=== PATIENT | female | born 1990 | race Caucasian/White ===

== ENCOUNTER 2019-07-18 09:06 | Inpatient (IN) | payer MEDICAID ==
[~2019-07-18] VITALS: Ht 167.6 cm; Wt 99.8 kg
[2019-07-18] MEDS ORDERED: OXYTOCIN 20 UNITS in LACTATED RINGERS 1,000 ML IV SCH (09:45)
[2019-07-18] MEDS ORDERED: ONDANSETRON 4 MG/2 ML VIAL IVP PRN (09:45)
[2019-07-18] MEDS ORDERED: LACTATED RINGERS 1,000 ML IV SCH (11:05)
[2019-07-18 11:45] VITALS: BP 134/86
[2019-07-18 11:45] LABS: BASOPHILS % (AUTO) 0.2 % (0.0-2.0); EOSINOPHILS # (AUTO) 0.1 K/uL (0-0.4); EOSINOPHILS % (AUTO) 0.7 % (0.0-4.0); HEMATOCRIT 39.9 % (36-48); HEMOGLOBIN 13.2 g/dL (12.0-16.0); LYMPHOCYTES # (AUTO) 1.9 K/uL (2.5-16.5); LYMPHOCYTES % (AUTO) 18.4 % (20.5-51.1); MEAN CORPUSCULAR HEMOGLOBIN 29 pg (27-31); MEAN CORPUSCULAR HGB CONC 33 g/dL (33-37); MEAN CORPUSCULAR VOLUME 88.5 fL (80-94); MONOCYTES # (AUTO) 0.9 K/uL (0.8-1.0); MONOCYTES % (AUTO) 8.2 % (1.7-9.3); NEUTROPHILS # (AUTO) 7.7 K/uL (1.8-7.7); NEUTROPHILS % (AUTO) 72.5 % (42.2-75.2); PLATELET COUNT (AUTO) 208 K/uL (140-450); RED BLOOD CELL COUNT(AUTO) 4.52 MIL/uL (4.20-5.40); RED CELL DISTRIBUTION WIDTH 13.6 % (11.6-13.7); WHITE BLOOD COUNT (AUTO) 10.6 K/uL (4.8-10.8)
[2019-07-18 12:00] LABS: ALBUMIN 2.5 g/dL (3.4-5.0); ANION GAP 14.7 (8-16); CREATININE 0.6 mg/dL (0.6-1.3); POTASSIUM 4.7 mmol/L (3.5-5.1); TOTAL BILIRUBIN 0.6 mg/dL (0.0-1.0)
[2019-07-18 12:05] LABS: APPEARANCE,URINE CLEAR (CLEAR); BILIRUBIN,URINE NEGATIVE (NEGATIVE); BLOOD, URINE 1+ (NEGATIVE); COLOR,URINE YELLOW (YELLOW); LEUKOCYTE ESTERASE ,URINE TRACE (NEGATIVE); NITRITE, URINE NEGATIVE (NEGATIVE); PH,URINE 5.5 (5.0-9.0); UGLUCOSE NEGATIVE (NEGATIVE)
[2019-07-18 12:11] LABS: RBC,URINE 0-5 /HPF (0-5)
[2019-07-18] MEDS ORDERED: AMPICILLIN 2,000 MG in NACL 0.9% 100 ML IV SCH (13:00)
[2019-07-18] MEDS ORDERED: AMPICILLIN 2,000 MG VIAL ONE (13:08)
[2019-07-18] MEDS ORDERED: AMPICILLIN 1,000 MG in NACL 0.9% 50 ML IV SCH (17:00)
[2019-07-18] MEDS ORDERED: AMPICILLIN 1,000 MG VIAL ONE (17:25)
[2019-07-18] MEDS ORDERED: fentaNYL 0.05 MG/ML VIAL ONE (19:12)
[2019-07-18] MEDS: fentaNYL 0.05 MG/ML VIAL IVP PRN ×2 (19:38→23:31)
[2019-07-19] MEDS ORDERED: METHYLERGONOVINE 0.2 MG TAB PO PRN (01:20)
[2019-07-19] MEDS ORDERED: MEASLES, MUMPS, AND RUBELLA 1 VIAL SQVAC PRN (01:20)
[2019-07-19] MEDS ORDERED: OXYTOCIN 10 UNITS/ML VIAL IM PRN (01:20)
[2019-07-19] MEDS ORDERED: METHYLERGONOVINE 0.2 MG/ML AMP IM PRN (01:20)
[2019-07-19] MEDS ORDERED: BENZOCAINE/MENTHOL 20%-0.5% 60 GM CAN TP PRN (01:20)
[2019-07-19] MEDS ORDERED: LIDOCAINE MPF 1% 10 MG/ML VIAL INJ ONE (01:45)
[2019-07-19 09:08] LABS: HEMOGLOBIN 12.3 g/dL (12.0-16.0)
--- NOTE | 2019-07-19 09:18 | NUR ---
PATIENT HAS BEEN SCREENED AND CATEGORIZED LOW NUTRITION RISK. PATIENT WILL BE SEEN WITHIN 5-7 DAYS OF ADMISSION. 07/24/19-07/26/[address]
[2019-07-19] MEDS: IBUPROFEN 800 MG TAB PO PRN (19:21)
[2019-07-19] MEDS ORDERED: INFLUENZA VACCINE QUAD 0.5 ML SYR IMVAC PRN (21:00)
[2019-07-20] MEDS: IBUPROFEN 800 MG TAB PO PRN (15:59)
[2019-07-21] MEDS: IBUPROFEN 800 MG TAB PO PRN (02:18)
== END 2019-07-21 15:28 | disposition home or self-care (01) | DRG 560 ==
LOC: MLD 09:06 → MFCC 07-19 04:40
PROVIDERS: ADMIT Obstetrics & Gynecology; ATTEND Obstetrics & Gynecology
PROC: 10E0XZZ Delivery of Products of Conception, External Approach (ICD-10-PCS; principal; 2019-07-19)
PROC: 0HQ9XZZ Repair Perineum Skin, External Approach (ICD-10-PCS; 2019-07-19)
DX: O70.0 First degree perineal laceration during delivery (principal); O41.03X0 Oligohydramnios, third trimester, not applicable or unspecified; O77.0 Labor and delivery complicated by meconium in amniotic fluid; Z37.0 Single live birth; Z3A.39 39 weeks gestation of pregnancy; O80 Encounter for full-term uncomplicated delivery
CPT/HCPCS: 36415; 59409; 76815; 80053; 81001; 85018; 85025; 86592; 86886; 86900; 86901; 87086; 87653-90; J0290; J2001; J2590; J3010; J7120; Q0092

== ENCOUNTER 2021-09-21 14:56 | Emergency (ER) | payer MEDICAID ==
[~2021-09-21] VITALS: Ht 170.2 cm; Wt 97.5 kg
[2021-09-21 15:17] VITALS: BP 144/85
--- NOTE | 2021-09-21 15:40 | NUR ---
PT AMBULATED TO ER BED 3 WITH STEADY GAIT
[2021-09-21] MEDS ORDERED: MECLIZINE 25 MG TAB PO ONE (15:45)
[2021-09-21] MEDS ORDERED: ONDANSETRON 4 MG ODT PO ONE (15:45)
--- NOTE | 2021-09-21 15:55 | NUR ---
31/F C/O N/V AND DIZZINESS SINCE THIS MORNING, DENIES ABDOMINAL PAIN, DYSURIA. DENIES TAKING ANYTHING AT HOME FOR PAIN. PT STATED THE DIZZINESS STARTED TO THIS AM AROUND 0900 WHEN SHE WAS WORKING. PT CURRENTLY A&OX4. PT DENIES ANY CHEST PAIN, SOB, FEVER/CHILLS. PER PATIENT "SHE JUST FEELS DIZZY AT THIS TIME." MEDHX: DENIES ALLERGIES: DENIES
[2021-09-21 16:59] LABS: BASOPHILS % (AUTO) 0.3 % (0.0-2.0); EOSINOPHILS % (AUTO) 0.3 % (0.0-4.0); HEMATOCRIT 41.8 % (36-48); LYMPHOCYTES # (AUTO) 1.3 K/uL (2.5-16.5); LYMPHOCYTES % (AUTO) 10.7 % (20.5-51.1); MEAN CORPUSCULAR HEMOGLOBIN 29 pg (27-31); MEAN CORPUSCULAR HGB CONC 34 g/dL (33-37); MEAN CORPUSCULAR VOLUME 86.3 fL (80-94); MONOCYTES # (AUTO) 0.4 K/uL (0.8-1.0); MONOCYTES % (AUTO) 3.4 % (1.7-9.3); NEUTROPHILS # (AUTO) 10.5 K/uL (1.8-7.7); NEUTROPHILS % (AUTO) 85.3 % (42.2-75.2); PLATELET COUNT (AUTO) 255 K/uL (140-450); RED BLOOD CELL COUNT(AUTO) 4.85 MIL/uL (4.20-5.40); RED CELL DISTRIBUTION WIDTH 13.2 % (11.6-13.7); WHITE BLOOD COUNT (AUTO) 12.4 K/uL (4.8-10.8)
[2021-09-21 17:39] LABS: ALBUMIN 3.9 g/dL (3.4-5.0); ANION GAP 14.1 (8-16); CARBON DIOXIDE 24.4 mmol/L (21-32); CREATININE 0.6 mg/dL (0.6-1.3); POTASSIUM 3.5 mmol/L (3.5-5.1); TOTAL BILIRUBIN 0.9 mg/dL (0.0-1.0)
[2021-09-21] MEDS ORDERED: ONDA-188 PO (17:46)
[2021-09-21] MEDS ORDERED: MECL-303 PO (17:46)
--- NOTE | 2021-09-21 17:53 | NUR ---
Patient discharged with v/s stable. Written and verbal after care instructions given and explained. Patient alert, oriented and verbalized understanding of instructions. Ambulatory with steady gait. All questions addressed prior to discharge. ID band removed. Patient advised to follow up with PMD. Rx of ZOFRAN AND ANTIVERT given. Patient educated on indication of medication including possible reaction and side effects. Opportunity to ask questions provided and answered.
[2021-09-21 17:54] VITALS: BP 134/77
== END 2021-09-21 17:53 | disposition home or self-care (01) ==
LOC: MED 14:56
DX: R42 Dizziness and giddiness (principal); R11.2 Nausea with vomiting, unspecified; G43.909 Migraine, unspecified, not intractable, without status migrainosus; Z79.899 Other long term (current) drug therapy
CPT/HCPCS: 36415; 80053; 81002; 81025; 83690; 85025; 93005; 99284; J8597; Q0162

== ENCOUNTER 2023-06-02 07:59 | Emergency (ER) | payer MEDICAID ==
[~2023-06-02] VITALS: Ht 170.2 cm; Wt 90.7 kg
[~2023-06-02 07:59] MED LIST: MECL-303 PO; ONDA-188 PO
[2023-06-02 08:16] VITALS: BP 138/87; PULSE 84; RESP 16; TEMP 97.7; O2SAT 98
[2023-06-02 08:39] LABS: FLU A ANTIGEN negative (NEGATIVE); FLU B ANTIGEN NEGATIVE (NEGATIVE)
[2023-06-02] MEDS ORDERED: ROB PO (08:57)
[2023-06-02 09:05] VITALS: BP 138/87; PULSE 84; RESP 16; TEMP 97.7; O2SAT 98
== END 2023-06-02 09:04 | disposition home or self-care (01) ==
LOC: MED 07:59
DX: J06.9 Acute upper respiratory infection, unspecified (principal); Z20.822 Contact with and (suspected) exposure to COVID-19; Z79.899 Other long term (current) drug therapy
CPT/HCPCS: 81025; 99283

== ENCOUNTER 2024-06-04 20:18 | Emergency (ER) | payer MEDICAID, OTHER ==
[~2024-06-04] VITALS: Ht 170.2 cm; Wt 94.3 kg
[~2024-06-04 20:18] MED LIST changes: +ROB PO
[2024-06-04 20:25] VITALS: BP 140/98; PULSE 92; RESP 16; TEMP 96.9; O2SAT 99
[2024-06-04] MEDS: IBUPROFEN 600 MG TAB PO ONE (21:41)
[2024-06-04] MEDS ORDERED: IBUP-2213 PO (22:17)
[2024-06-04] MEDS ORDERED: ACET500T99 PO (22:17)
[2024-06-04 22:30] VITALS: BP 140/98; PULSE 92; RESP 16; TEMP 96.9; O2SAT 99
== END 2024-06-04 22:30 | disposition home or self-care (01) ==
LOC: MED 20:18
DX: S63.91XA Sprain of unspecified part of right wrist and hand, initial encounter (principal); S80.01XA Contusion of right knee, initial encounter; Z79.899 Other long term (current) drug therapy; W01.0XXA Fall on same level from slipping, tripping and stumbling without subsequent striking against object, initial encounter; Y93.89 Activity, other specified; Y92.511 Restaurant or cafe as the place of occurrence of the external cause; Y99.8 Other external cause status
CPT/HCPCS: 73130; 73562; 99284; Q0092